=== PATIENT | female | born 2000 | race Caucasian/White ===

== ENCOUNTER 2020-02-18 14:58 | Emergency (ER) | payer OTHER ==
[2020-02-18 17:29] LABS: #Lymphocytes 2.7 thou/uL (1.20-3.40); #Monocytes 0.6 thou/uL (0.11-0.59); #Neutrophils 4.7 thou/uL (1.40-6.50); %Eosinophils 0.6 % (0.0-10.0); %Lymphocytes 33.4 % (28.0-48.0); %Monocytes 7.3 % (0.0-4.0); %Neutrophils 58.7 % (31.0-61.0); Hemoglobin 14.1 g/dL (12.0-16.0); Mean Corpuscular HGB CONC 33.9 g/dL (32.0-36.0); Mean Corpuscular Hemoglobin 29.8 pg (25.0-35.0); Mean Corpuscular Volume 88.1 fL (78.0-98.0); Mean Platelet Volume 8.6 fL (7.4-10.4); Platelet Count 231 thou/uL (130-400); RBC Distribution Width 12.4 % (11.5-14.5); Red Blood Cell (RBC) Count 4.71 mill/uL (4.00-5.20); White Blood Cell (WBC) Count 8.1 thou/uL (4.8-10.8)
[2020-02-18 17:49] LABS: ALT (SGPT) 8 U/L (8-55); AST (SGOT) 12 U/L (5-30); Albumin 4.2 g/dL (3.5-5.0); Alkaline Phosphatase 74 U/L (40-100); Anion Gap 15 mmol/L (10-20); BUN (Urea Nitrogen) 8 mg/dL (8.4-21.0); Bilirubin, Total 1.1 mg/dL (0.2-1.2); Calc. Creatinine Clearance 0 mL/min (70-130); Calcium 9.2 mg/dL (7.8-10.44); Carbon Dioxide 20 mmol/L (22-29); Chloride 106 mmol/L (98-107); Estimated GFR-MDRD Greater than 90; Globulin 2.4 g/dL (2.4-3.5); Glucose 79 mg/dL (70-105); Potassium 3.8 mmol/L (3.5-5.1); Protein, Total 6.6 g/dL (6.0-8.3); Sodium 137 mmol/L (136-145)
--- NOTE | 2020-02-18 18:10 | ULT ---
ULTRASOUND PELVIC ULTRASOUND TRANSVAGINAL DOPPLER DUPLEX: DATE: 02/18/2020 HISTORY: 19-year-old female with left-sided pelvic pain TECHNIQUE: Transabdominal transducer and endovaginal transducer used to visualize intrapelvic contents with sharma scale, color-flow, and spectral analysis. FINDINGS: Uterus: 8.5 x 5.5 x 6 cm. Intrauterine gestational sac at fundus. Mean sac diameter of 8.9 mm corresponds to 5 weeks 5 days gestational age +/- 12 days. No yolk sac or embryonic pole visualized. Tiny amount of free fluid in cul-de-sac. Right ovary: 2.4 x 2.9 x 2.0 cm. Left ovary: 2 x 2.5 x 1.3 cm. Blood flow demonstrated in both ovaries by Doppler. IMPRESSION: Intrauterine gestational sac without visualization of yolk sac or pole. Recommend follow-up pelvic and transvaginal ultrasound in 14 days.
[2020-02-18 18:22] LABS: Bilirubin Negative (Negative); Blood, Urine Negative (Negative); Clarity Clear (Clear); Glucose, Urine (Dipstick) Normal (Negative); Ketone, Urine 80 mg/dL (Negative); Leukocyte Negative Leu/uL (Negative); Nitrite Negative (Negative); Protein, Urine (Dipstick) 10 mg/dL (Neg-Trace); Urobilinogen Normal mg/dL (Less than 2); pH, Urine 5.5 (5.0-9.0)
--- NOTE | 2020-02-19 13:13 | CON ---
DATE OF CONSULTATION: 02/18/2020 TIME OF SERVICE: 1930 hours. ED PHYSICIAN: Jesi Price. REASON FOR CONSULTATION: Possible ectopic. HISTORY OF PRESENT ILLNESS: Ms. Ann is a 19-year-old, 1, para 0, LMP approximately 6 weeks ago, who presents with 2 weeks of lower abdominal pain, slightly greater left than right. She denies dysuria, vaginal bleeding, fainting, nausea, or vomiting. She was seen in the ED and evaluated, noted to have a beta hCG of approximately 10,000. Had an ultrasound that did not reveal a pole. I was consulted to rule out concerning possible ectopic. OBSTETRIC AND GYNECOLOGIC HISTORY: None. Denies history of STDs. GC, chlamydia pending. SURGICAL HISTORY: None. MEDICAL HISTORY: Multiple psychiatric disorders. ALLERGIES: NONE. MEDICATIONS: None. SOCIAL HISTORY: Positive vaping. FAMILY HISTORY: Noncontributory. REVIEW OF SYSTEMS: Noncontributory. PHYSICAL EXAMINATION: VITAL SIGNS: Temperature 99.3, pulse 98, respirations 18, blood pressure 128/75. HEENT: Within normal limits. LUNGS: Clear to auscultation bilaterally. HEART: Regular rate and rhythm. ABDOMEN: Soft. She has mild discomfort in the middle and left lower quadrant. She has no rebound, no guarding, no fluid wave. PELVIC: Was reported as normal with no bleeding by ER doctor, not repeated by myself. EXTREMITIES: No clubbing, cyanosis, or edema. LABORATORY DATA: Hematocrit 41%, white count 8.1, normal platelet count. Basement within normal limits. Urinalysis clear. Beta hCG 10,073. Ultrasound was read by Radiology as an intrauterine gestational sac measuring 9 cm in greatest diameter consistent with 5 weeks 5 days with no pole noted. Tiny amount of free fluid in the cul-de-sac. No adnexal mass, right and left. No ovarian cyst, right and left. Normal-sized ovaries with good Doppler flow. Images were reviewed by myself. Technique was somewhat lacking both abdominally and transvaginally. However, a gestational sac with a double ring sign was noted. Resolution was poor and unable to delineate a pole. No findings consistent with ectopic were noted in the images that presented on either adnexa. IMPRESSION: of uncertain location, suspect blighted ovum. Cannot rule out early viable intrauterine or a very small ectopic . PLAN: Discussed with the patient options. I explained to her I felt like with the findings as noted were probably 80%, likely to be a blighted ovum, 10% to 15% normal intrauterine and 5% chance of an ectopic. I offered her admission with serial beta hCGs and repeat ultrasound in 12 to 24 hours. The patient declined this plan and stated she has an [employer] history. She is just in town visiting her boyfriend. She is going to go back home and follow up with [employer] within 4 days. She was given ER precautions for signs or symptoms of ruptured ectopic . Job ID: [id number]
[2020-02-21 20:17] LABS: Chlamydia by PCR Not Detected (NotDetected); GC by PCR Not Detected (NotDetected)
== END 2020-02-18 19:47 | disposition home or self-care (01) ==
LOC: ERS 14:58
DX: O02.0 Blighted ovum and nonhydatidiform mole (principal); F31.9 Bipolar disorder, unspecified; F41.9 Anxiety disorder, unspecified; F17.290 Nicotine dependence, other tobacco product, uncomplicated
CPT/HCPCS: 36415; 76856; 80053; 81003; 84702; 85025; 86900; 86901; 87491; 87591